=== PATIENT | male | born 1985 | race Two or more races ===

== ENCOUNTER 2018-12-03 03:42 | Emergency (ER) | payer SELFPAY ==
[~2018-12-03] VITALS: Ht 190.5 cm; Wt 105.7 kg
[2018-12-03 03:58] VITALS: BP 107/68
[2018-12-03 04:33] LABS: BASOPHILS % (AUTO) 0.8 % (0.0-2.0); HEMATOCRIT 45 % (39-51); HEMOGLOBIN 15.2 g/dL (13.5-17.5); LYMPHOCYTES # (AUTO) 1.7 /CMM (0.8-4.8); MEAN CORPUSCULAR HGB CONC 34 g/dl (31.0-36.0); MEAN CORPUSCULAR VOLUME 83 fL (80-96); MONOCYTES # (AUTO) 0.5 /CMM (0.1-1.30); MONOCYTES % (AUTO) 9.9 % (2.0-12.0); NEUTROPHILS % (AUTO) 54.3 % (43.0-81.0); PLATELET COUNT (AUTO) 256 /CMM (150-450); RED BLOOD CELL COUNT(AUTO) 5.38 MIL/uL (4.5-6.0); WHITE BLOOD COUNT (AUTO) 5.5 K/uL (4.3-11.0)
[2018-12-03 04:42] LABS: CALCIUM, SERUM 9.5 mg/dL (8.5-10.1); CREATININE 0.9 mg/dL (0.6-1.3); POTASSIUM 5.2 mmol/L (3.5-5.1)
[2018-12-03 04:48] LABS: ALBUMIN 4.3 g/dL (3.4-5.0); BILIRUBIN,DIRECT 0.3 mg/dL (0.0-0.2); BILIRUBIN,TOTAL 1.9 mg/dL (0.2-1.0); TOTAL PROTEIN, SERUM 7.7 g/dL (6.4-8.2)
== END 2018-12-03 05:09 | disposition home or self-care (01) ==
LOC: ER 03:46
DX: R10.33 Periumbilical pain (principal); E80.6 Other disorders of bilirubin metabolism; F17.200 Nicotine dependence, unspecified, uncomplicated; Z98.890 Other specified postprocedural states
CPT/HCPCS: 36415; 80048; 80076; 83690; 85025; 99283; A4606

== ENCOUNTER 2020-01-28 23:50 | Emergency (ER) | payer BC ==
[~2020-01-28] VITALS: Ht 190.5 cm; Wt 97.5 kg
--- NOTE | 2020-01-29 00:28 | NUR ---
PT C/O Body aches + chills on and off x 2 days. MD at bedside for eval. Afebrile. No acute distress noted.
[2020-01-29] MEDS ORDERED: MAGNESIUM CITRATE 296 ML BOTTLE ONE (00:48)
--- NOTE | 2020-01-29 00:58 | NUR ---
CORONAVIRUS SWAB SAMPLE TAKEN AND SENT TO LAB.
[2020-01-29] MEDS ORDERED: MAGNESIUM CITRATE 296 ML BOTTLE PO ONE (01:00)
[2020-01-29 01:11] VITALS: BP 118/74
== END 2020-01-29 01:11 | disposition home or self-care (01) ==
LOC: ER 23:53
DX: M79.18 Myalgia, other site (principal); R50.9 Fever, unspecified; R53.83 Other fatigue; Z20.828 Contact with and (suspected) exposure to other viral communicable diseases; Z98.84 Bariatric surgery status; K59.00 Constipation, unspecified

== ENCOUNTER 2021-01-08 20:46 | Emergency (ER) | payer BC ==
[~2021-01-08] VITALS: Ht 190.5 cm; Wt 94.3 kg
--- NOTE | 2021-01-08 21:06 | NUR ---
PT AAOX4. AMBULATORY WITH STEADY GAIT. BIBSELF C/O EPIGASTRIC PAIN RADIATING TO BACK AND NECK. HAD FIRST COVID TEST TODAY. PT PLACED IN BED 3 ON MONITOR AND PULSE OX.
[2021-01-08 21:25] LABS: BASOPHILS % (AUTO) 0.5 % (0.0-2.0); HEMATOCRIT 42 % (39-51); LYMPHOCYTES # (AUTO) 1.2 /CMM (0.8-4.8); LYMPHOCYTES % (AUTO) 16.6 % (20.0-44.0); MEAN CORPUSCULAR HGB CONC 33 g/dl (31.0-36.0); MEAN CORPUSCULAR VOLUME 86 fL (80-96); MONOCYTES # (AUTO) 0.5 /CMM (0.1-1.30); MONOCYTES % (AUTO) 7.3 % (2.0-12.0); NEUTROPHILS # (AUTO) 5.6 /CMM (1.8-8.9); NEUTROPHILS % (AUTO) 74.6 % (43.0-81.0); PLATELET COUNT (AUTO) 282 /CMM (150-450); WHITE BLOOD COUNT (AUTO) 7.5 K/uL (4.3-11.0)
[2021-01-08] MEDS ORDERED: DICYCLOMINE HCL 10 MG CAPSULE PO ONE ×2 (21:28→21:30)
--- NOTE | 2021-01-08 21:31 | NUR ---
US AT BEDSIDE
[2021-01-08 21:47] LABS: ALBUMIN 4.2 g/dL (3.4-5.0); BILIRUBIN,DIRECT 0.3 mg/dL (0.0-0.2); BILIRUBIN,TOTAL 1.2 mg/dL (0.2-1.0); CALCIUM, SERUM 8.4 mg/dL (8.5-10.1); POTASSIUM 3.9 mmol/L (3.5-5.1); TOTAL PROTEIN, SERUM 7.3 g/dL (6.4-8.2)
[2021-01-08] MEDS ORDERED: KETOROLAC TROMETHAMINE INJ 60 MG/2 ML VIAL IM ONE (22:00)
[2021-01-08] MEDS ORDERED: KETOROLAC TROMETHAMINE INJ 30 MG/ML VIAL ONE (22:13)
[2021-01-08] MEDS ORDERED: ONDA4TAB11 PO (23:29)
[2021-01-08] MEDS ORDERED: OXYC1TAB12 PO (23:29)
[2021-01-08] MEDS ORDERED: DICY10CA37 PO ×3 (23:33→23:35)
--- NOTE | 2021-01-08 23:38 | NUR ---
pt is medically stable for D/C. Patient discharged to home in stable condition. Rx and Written and verbal after care instructions given. Patient verbalizes understanding of instruction.
[2021-01-09 00:29] VITALS: BP 129/76
== END 2021-01-09 00:29 | disposition home or self-care (01) ==
LOC: ER 20:48
DX: K80.20 Calculus of gallbladder without cholecystitis without obstruction (principal); F17.200 Nicotine dependence, unspecified, uncomplicated; Z90.89 Acquired absence of other organs; Z98.890 Other specified postprocedural states; Z79.899 Other long term (current) drug therapy
CPT/HCPCS: 36415; 76705; 80048; 80076; 82150; 83690; 85025; 96372; 99284; J1885